=== PATIENT | male | born 1960 | race Two or more races ===

== ENCOUNTER 2024-10-16 09:24 | Emergency (ER) | payer OTHER ==
[~2024-10-16] VITALS: Ht 177.8 cm; Wt 94.1 kg
[2024-10-16 09:27] VITALS: PULSE 59; RESP 20; TEMP 97.6; O2SAT 95
[2024-10-16] MEDS ORDERED: AZITHROMYCIN250 MG PO (10:09)
[2024-10-16] MEDS ORDERED: BENZONATATE100 MG PO (10:09)
[2024-10-16] MEDS ORDERED: MUCINEX DM ER1 EACH PO (10:09)
[2024-10-16] MEDS ORDERED: VENTOLIN HFA18 GM INH (10:09)
== END 2024-10-16 10:18 | disposition home or self-care (01) ==
LOC: FSED 09:28
DX: R05.9 Cough, unspecified (principal); J40 Bronchitis, not specified as acute or chronic; I10 Essential (primary) hypertension; E78.5 Hyperlipidemia, unspecified; E03.9 Hypothyroidism, unspecified; Z95.1 Presence of aortocoronary bypass graft; F17.210 Nicotine dependence, cigarettes, uncomplicated
CPT/HCPCS: 71046; 99284